=== PATIENT | female | born 1970 | race Caucasian/White ===

== ENCOUNTER 2020-03-22 12:52 | Emergency (ER) | payer MEDICAID ==
[~2020-03-22] VITALS: Ht 165.1 cm; Wt 70.5 kg
[~2020-03-22 12:52] MED LIST: CYCL-1 PO; HYDR-4383 PO; ONDA4TAB6 PO
[2020-03-22 13:50] VITALS: BP 121/75
[2020-03-22] MEDS ORDERED: LIDOcaine 5% patch TP STA (16:37)
[2020-03-22] MEDS ORDERED: ketorolac tromethamine 15mg/ml inj. IM ONE (16:40)
[2020-03-22] MEDS ORDERED: IBUP-1984 PO (17:04)
[2020-03-22] MEDS ORDERED: LIDO700A32 TOP (17:04)
== END 2020-03-22 17:14 | disposition home or self-care (01) ==
LOC: ER 12:53
DX: M75.41 Impingement syndrome of right shoulder (principal); J45.909 Unspecified asthma, uncomplicated; G89.29 Other chronic pain; Z88.1 Allergy status to other antibiotic agents; Z79.899 Other long term (current) drug therapy
CPT/HCPCS: 73030; 99283; J1885

== ENCOUNTER 2021-11-28 06:19 | Day surgery (SDC) | payer MEDICAID ==
[2021-11-21 14:56] LABS: BASOPHILS # (AUTO) 0.1 X10'3 (0-0.2); BASOPHILS % (AUTO) 0.9 % (0-1); EOSINOPHILS # (AUTO) 0.3 X10'3 (0-0.9); EOSINOPHILS % (AUTO) 2.4 % (0-6); LYMPHOCYTES # (AUTO) 4.1 X10'3 (1.1-4.8); LYMPHOCYTES % (AUTO) 32.5 % (21-51); MEAN CORPUSCULAR HEMOGLOBIN 28.7 PG (27.0-31.0); MEAN CORPUSCULAR HGB CONC 33.5 g/dL (33.0-36.5); MEAN CORPUSCULAR VOLUME 85.8 FL (78-98); MEAN PLATELET VOLUME 9.6 FL (7.4-10.4); MONOCYTES # (AUTO) 1.1 X10'3 (0-0.9); MONOCYTES % (AUTO) 8.6 % (2-12); NEUTROPHILS # (AUTO) 7.1 X10'3 (1.8-7.7); NEUTROPHILS % (AUTO) 55.6 % (42-75); PRE OP HEMOGLOBIN 12.4 g/dL (12.0-16.0); PRE OP PLATELET COUNT 273 X10'3 (140-440); RED BLOOD COUNT 4.32 X10'6 (4.20-5.60); RED CELL DISTRIBUTION WIDTH 15.7 % (11.5-14.5)
[2021-11-21 15:10] LABS: ALBUMIN 3.7 G/DL (3.4-5.0); ALBUMIN/GLOBULIN RATIO 1.1 (1.1-1.5); ALKALINE PHOSPHATASE 78 IU/L (46-116); BLOOD UREA NITROGEN 8 MG/DL (7-18); BUN/CREATININE RATIO 9.3 (6.6-38.0); CALCIUM 8.8 MG/DL (8.5-10.1); CHLORIDE 103 MMOL/L (99-107); CREATININE 0.86 MG/DL (0.40-0.90); PRE OP ALT 26 U/L (30-65); PRE OP ANION GAP 7 (8-16); PRE OP AST 20 U/L (10-37); PRE OP BILIRUB, TOTAL 0.2 MG/DL (0.0-1.0); PRE OP GLUCOSE 95 MG/DL (70-104); PRE OP POTASSIUM 4.2 MMOL/L (3.4-5.1); PRE OP SODIUM 138 MMOL/L (135-145); TOTAL CARBON DIOXIDE 27.8 MMOL/L (24-32); TOTAL PROTEIN 7.2 G/DL (6.4-8.2); eGFR 69 ML/MIN
[2021-11-28] VITALS (7 sets, daily range): BP systolic 102–125; BP diastolic 60–68
[~2021-11-28] VITALS: Ht 165.1 cm; Wt 64.6 kg
[~2021-11-28 06:19] MED LIST changes: +BACL20TA PO; +BECL10.62 INH; -CYCL-1 PO; +GABA-530 PO; -HYDR-4383 PO; +IBUP-1984 PO; +MONT-40 PO; -ONDA4TAB6 PO; +TRAZ-251 PO; +albuterol 2.5 MG/3 ML nebule NEB ONE; +ceFAZolin inj. 2,000 MG in dextrose 5%-water 100 ML IV ONE; +famotidine 20mg tablet PO ONE; +ringers solution, lacted 1,000 ML IV SCH
[2021-11-28] MEDS ORDERED: BUPIVAcaine/PF 2.5mg/ml (0.25%) 10ml vial ONE (06:51)
[2021-11-28] MEDS ORDERED: FLUO20CA39 PO (07:04)
[2021-11-28] MEDS ORDERED: hydrALAZINE 20mg/ml inj. IV PRN (09:15)
[2021-11-28] MEDS ORDERED: ringers solution, lacted 1,000 ML IV SCH (09:15)
[2021-11-28] MEDS ORDERED: morphine 4 MG/ML inj SYRINge IV PRN (09:15)
[2021-11-28] MEDS ORDERED: ondansetron/PF 4mg/2ml inj IV PRN (09:15)
[2021-11-28] MEDS ORDERED: morphine 2 MG/ML inj. syringe IV PRN (09:15)
[2021-11-28] MEDS ORDERED: fentaNYL/PF 50MCG/1 ML 2ML syringe IV PRN ×2 (09:15)
[2021-11-28] MEDS ORDERED: labetalol 20mg/4ml (5mg/ml) syringe IV PRN (09:15)
[2021-11-28] MEDS ORDERED: fentaNYL/PF 50MCG/1 ML 2ML syringe ONE (10:23)
[2021-11-28] MEDS ORDERED: midazolam 1 mg/ML 2ml injection ONE (10:24)
[2021-11-28] MEDS ORDERED: LIDOcaine 0.5% (5mg/ml) 50ml vial ONE (10:25)
--- NOTE | 2021-11-28 10:43 | NUR ---
Received from OR via [facility], accompanied by Anesthesiologist and report given by [facility]ME Anesthesiologist. PATIENT WAKING UP, NO S/S OF PAIN, V/S WNL, SCD ON, 20G TO LUE, RIGHT WRIST DRESSING CDI. ICE AND ELEVATED RUE. Addendum: 11/28/21 at 1123 by Jose Eduardo Lovett RN Amended: Links added.
--- NOTE | 2021-11-28 11:33 | NUR ---
PATIENT A&OX4, DENIES PAIN, V/S WNL, SCD OFF, 20G TO LUE D/C, RIGHT WRIST DRESSING CDI. ICE AND ELEVATED RUE. I HAVE REVIEWED D/C INSTRUCTIONS WITH PATIENT and they have verbalized understanding patient d/c home with all belongings and family gave transport home. Addendum: 11/28/21 at 1140 by Jose Eduardo Lovett RN Amended: Links added.
--- NOTE | 2021-11-28 14:59 | NUR ---
PATIENT'S DISCHARGE INSTRUCTIONS WERE FOUND ON THE ROOM FLOOR. RN LEFT VOICEMAIL TO PATIENT'S AND SPOUSE CELLPHONE IF THEY NEED TO HAVE FURTHER EXPLANATION ABOUT IT OR GET IT FROM THE UNIT.
== END 2021-11-28 11:33 | disposition home or self-care (01) ==
LOC: PAS 06:19
PROVIDERS: ATTEND Orthopaedic Surgery Hand Surgery
DX: G56.01 Carpal tunnel syndrome, right upper limb (principal); F17.210 Nicotine dependence, cigarettes, uncomplicated; G89.29 Other chronic pain; M19.90 Unspecified osteoarthritis, unspecified site; Z88.1 Allergy status to other antibiotic agents; Z79.899 Other long term (current) drug therapy; Z98.890 Other specified postprocedural states
CPT/HCPCS: 29848; 36415; 80053; 82948; 85025; 93005; J0690; J2250; J3010; J3490; J7030; J7060; J7120; Z7506; Z7512; A4215; A7000

== ENCOUNTER 2022-10-06 07:33 | Day surgery (SDC) | payer MEDICAID ==
[2022-09-29 11:26] LABS: BASOPHILS # (AUTO) 0.1 X10'3 (0-0.2); EOSINOPHILS # (AUTO) 0.2 X10'3 (0-0.9); EOSINOPHILS % (AUTO) 2.1 % (0-6); HEMATOCRIT 36.8 % (35.0-45.0); LYMPHOCYTES # (AUTO) 3.3 X10'3 (1.1-4.8); LYMPHOCYTES % (AUTO) 32.5 % (21-51); MEAN CORPUSCULAR HEMOGLOBIN 28.5 PG (27.0-31.0); MEAN CORPUSCULAR HGB CONC 32.6 g/dL (33.0-36.5); MEAN CORPUSCULAR VOLUME 87.5 FL (78-98); MEAN PLATELET VOLUME 9.4 FL (7.4-10.4); MONOCYTES # (AUTO) 1.3 X10'3 (0-0.9); MONOCYTES % (AUTO) 12.3 % (2-12); NEUTROPHILS # (AUTO) 5.3 X10'3 (1.8-7.7); NEUTROPHILS % (AUTO) 52.1 % (42-75); PLATELET COUNT 256 X10'3 (140-440); RED CELL DISTRIBUTION WIDTH 16.2 % (11.5-14.5); WHITE BLOOD COUNT 10.2 X10'3 (4.5-11.0)
[2022-09-29 11:42] LABS: ALANINE AMINOTRANSFERASE 22 U/L (12-78); ALBUMIN 3.4 G/DL (3.4-5.0); ALKALINE PHOSPHATASE 83 IU/L (46-116); ANION GAP 7 (8-16); ASPARTATE AMINO TRANSFERASE 23 U/L (10-37); BILIRUBIN,TOTAL 0.1 MG/DL (0.1-1.0); BLOOD UREA NITROGEN 8 MG/DL (7-18); BUN/CREATININE RATIO 9.9 (10.0-20.0); CALCIUM 8.6 MG/DL (8.5-10.1); CHLORIDE 105 MMOL/L (99-107); CREATININE 0.81 MG/DL (0.40-0.90); GLUCOSE 104 MG/DL (70-104); POTASSIUM 4.5 MMOL/L (3.5-5.1); SODIUM 138 MMOL/L (135-145); TOTAL CARBON DIOXIDE 25.6 MMOL/L (24-32); TOTAL PROTEIN 6.8 G/DL (6.4-8.2); eGFR 74 ML/MIN
[~2022-10-06] VITALS: Ht 165.1 cm; Wt 62.6 kg
[~2022-10-06 07:33] MED LIST changes: +BUPIVAcaine/PF 2.5 mg/ml (0.25%) 30ml vial ONE; +BUPR-72 PO; +FLUO20CA39 PO; -IBUP-1984 PO; -MONT-40 PO; -albuterol 2.5 MG/3 ML nebule NEB ONE; -ceFAZolin inj. 2,000 MG in dextrose 5%-water 100 ML IV ONE; +cefazolin 2gm/D5W 100mL 100 ML IV ONE; -famotidine 20mg tablet PO ONE; -ringers solution, lacted 1,000 ML IV SCH; +ringers solution, lacted 500 ML IV SCH
[2022-10-06] MEDS ORDERED: famotidine 20mg tablet PO ONE (10:14)
[2022-10-06] MEDS ORDERED: albuterol 2.5 MG/3 ML nebule NEB ONE (10:14)
[2022-10-06 10:30] VITALS: BP 127/70
[2022-10-06] MEDS ORDERED: LIDOcaine 0.5% (5mg/ml) 50ml vial ONE (12:20)
[2022-10-06] MEDS ORDERED: fentaNYL /PF 50mcg/ml 5ml ampule ONE (12:25)
[2022-10-06] MEDS ORDERED: midazolam 1 mg/ML 2ml injection ONE (12:25)
[2022-10-06] MEDS ORDERED: BUPIVAcaine 0.25% w/Epi /PF 30ml vial IJ ONE (12:43)
[2022-10-06 12:55] VITALS: BP 101/59
--- NOTE | 2022-10-06 12:55 | NUR ---
[facility] accompanied by Anesthesiologist HARRIS and report given by Anesthesiolgist. PT DROWSY, OXYGENATING WELL ON ROOM AIR, NO RESP DISTRESS NOTED. DENIES NAUSEA OR PAIN AT THIS TIME. BULKY DSG TO R THUMB/HAND CDI. R FINGERS PWD. VSS.
[2022-10-06] MEDS ORDERED: propofol inj 20 ML IV ONE (13:00)
[2022-10-06 13:05] VITALS: BP 112/69
[2022-10-06 13:15] VITALS: BP 110/70
[2022-10-06 13:25] VITALS: BP 109/68
--- NOTE | 2022-10-06 13:35 | NUR ---
VSS, DENIES PAIN. TOLERATING PO FLUIDS WELL. DC INSTRUCTIONS EXPLAINED TO PT, SHE VERBALIZED UNDERSTANDING. DCD IN STABLE CONDITION, TAKE TO CAR VIA WC.
== END 2022-10-06 13:35 | disposition home or self-care (01) ==
LOC: PAS 07:33
PROVIDERS: ATTEND Orthopaedic Surgery Hand Surgery
DX: M65.311 Trigger thumb, right thumb (principal); J45.909 Unspecified asthma, uncomplicated; G89.29 Other chronic pain; F17.290 Nicotine dependence, other tobacco product, uncomplicated; Z88.1 Allergy status to other antibiotic agents; Z79.899 Other long term (current) drug therapy; Z98.890 Other specified postprocedural states
CPT/HCPCS: 26055; 36415; 80053; 82948; 85025; A6222; J0690; J2250; J2704; J3010; J3490; J7030; J7120; S0020; Z7506; Z7512; A4215; A6449

== ENCOUNTER 2022-10-26 06:03 | Emergency (ER) | payer MEDICAID ==
[~2022-10-26] VITALS: Ht 165.1 cm; Wt 62.3 kg
[~2022-10-26 06:03] MED LIST changes: -BUPIVAcaine/PF 2.5 mg/ml (0.25%) 30ml vial ONE; -cefazolin 2gm/D5W 100mL 100 ML IV ONE; -ringers solution, lacted 500 ML IV SCH
[2022-10-26 06:06] VITALS: BP 111/66
[2022-10-26] MEDS ORDERED: cephalexin 250mg capsule PO ONE ×2 (06:50)
[2022-10-26] MEDS ORDERED: TETanus/Pertussis (Acell)/Diphther VAC/PF (Tdap-Adult) 0.5ml syringe IMVAC ONE (06:50)
[2022-10-26] MEDS ORDERED: CEPH250T PO (06:50)
== END 2022-10-26 07:02 | disposition home or self-care (01) ==
LOC: ER 06:04
DX: L03.011 Cellulitis of right finger (principal); J45.909 Unspecified asthma, uncomplicated; Z91.041 Radiographic dye allergy status
CPT/HCPCS: 90471; 90715; 99283

== ENCOUNTER 2022-10-28 15:28 | Emergency (ER) | payer MEDICAID ==
[~2022-10-28] VITALS: Ht 165.1 cm; Wt 68.5 kg
[~2022-10-28 15:28] MED LIST changes: +CEPH250T PO
[2022-10-28 15:41] VITALS: BP 112/75
--- NOTE | 2022-10-28 16:18 | NUR ---
PT PRESENTS TO THE ER WITH SWOLLEN AND REDDENED RIGHT PINKY FINGER. PT STATES THIS STARTED HAPPENING AFTER SCRATCHING IT A FEW DAYS AGO. PT STATES SHE IS 3 DAYS INTO HER PRESCRIPTION OF KEFLEX PRESCRIBED IN ER HERE.
[2022-10-28] MEDS ORDERED: LIDOcaine 1% W/epiNEPHrine 1:100,000 20ml vial IJ ONE (18:05)
[2022-10-28] MEDS ORDERED: ondansetron 4mg rapidly disintigrating tab PO ONE (18:35)
== END 2022-10-28 18:47 | disposition home or self-care (01) ==
LOC: ER 15:28
DX: L02.511 Cutaneous abscess of right hand (principal); J45.909 Unspecified asthma, uncomplicated; G89.29 Other chronic pain; Z88.8 Allergy status to other drugs, medicaments and biological substances; Z79.2 Long term (current) use of antibiotics; Z79.899 Other long term (current) drug therapy
CPT/HCPCS: 10060; 87070; 87077; 87186; 99283; A6449

== ENCOUNTER 2023-04-29 08:47 | Emergency (ER) | payer MEDICAID ==
[~2023-04-29] VITALS: Ht 165.1 cm; Wt 63.6 kg
[~2023-04-29 08:47] MED LIST changes: -CEPH250T PO
[2023-04-29 08:57] VITALS: BP 108/78; PULSE 80; RESP 18; TEMP 97.8; O2SAT 98
[2023-04-29] MEDS ORDERED: SULF1TAB49 PO (09:25)
[2023-04-29] MEDS ORDERED: CEPH-585 PO (09:25)
--- NOTE | 2023-04-29 13:41 | NUR ---
PATIENT DEPARTED FROM THE ER EARLIER TODAY, BUT PRIMARY NURSE IS UNSURE IF WRITTEN INSTRUCTIONS WERE GIVEN TO PATIENT WITH HER DEPARTURE. TC MADE TO PATIENT'S CONTACT PHONE NUMBER AND MESSAGE LEFT FOR PATIENT TO CALL BACK FOR QUESTIONS OR CLARIFICATION OF DC INSTRUCTIONS.
== END 2023-04-29 13:47 | disposition home or self-care (01) ==
LOC: ER 08:47
DX: L03.211 Cellulitis of face (principal); G89.29 Other chronic pain; M54.9 Dorsalgia, unspecified; J45.909 Unspecified asthma, uncomplicated; Z88.1 Allergy status to other antibiotic agents; Z79.899 Other long term (current) drug therapy
CPT/HCPCS: 99283

== ENCOUNTER 2023-07-09 05:49 | Day surgery (SDC) | payer MEDICAID ==
[2023-07-02 09:57] LABS: BASOPHILS # (AUTO) 0.1 X10'3 (0-0.2); EOSINOPHILS # (AUTO) 0.1 X10'3 (0-0.9); LYMPHOCYTES # (AUTO) 3.2 X10'3 (1.1-4.8); RED BLOOD COUNT 4.53 X10'6 (4.20-5.60); RED CELL DISTRIBUTION WIDTH 15.3 % (11.5-14.5)
[2023-07-02 09:58] LABS: BASOPHILS % (AUTO) 1.3 % (0-1); EOSINOPHILS % (AUTO) 1.2 % (0-6); HEMATOCRIT 39.7 % (35.0-45.0); HEMOGLOBIN 12.9 g/dl (12.0-16.0); LYMPHOCYTES % (AUTO) 30.1 % (21-51); MEAN CORPUSCULAR HEMOGLOBIN 28.5 PG (27.0-31.0); MEAN CORPUSCULAR HGB CONC 32.6 g/dL (33.0-36.5); MEAN CORPUSCULAR VOLUME 87.5 FL (78-98); MEAN PLATELET VOLUME 10.4 FL (7.4-10.4); MONOCYTES % (AUTO) 9.4 % (2-12); NEUTROPHILS # (AUTO) 6.1 X10'3 (1.8-7.7); PLATELET COUNT 293 X10'3 (140-440); WHITE BLOOD COUNT 10.5 X10'3 (4.5-11.0)
[2023-07-02 10:11] LABS: ALANINE AMINOTRANSFERASE 26 U/L (12-78); ALBUMIN 3.8 G/DL (3.4-5.0); ALKALINE PHOSPHATASE 91 IU/L (46-116); ANION GAP 9 (8-16); ASPARTATE AMINO TRANSFERASE 18 U/L (10-37); BILIRUBIN,TOTAL 0.3 MG/DL (0.1-1.0); BLOOD UREA NITROGEN 6 MG/DL (7-18); BUN/CREATININE RATIO 7.1 (10.0-20.0); CALCIUM 8.8 MG/DL (8.5-10.1); CHLORIDE 101 MMOL/L (99-107); CREATININE 0.85 MG/DL (0.40-0.90); GLUCOSE 147 MG/DL (70-104); POTASSIUM 3.8 MMOL/L (3.5-5.1); SODIUM 137 MMOL/L (135-145); TOTAL CARBON DIOXIDE 26.8 MMOL/L (24-32); TOTAL PROTEIN 7.6 G/DL (6.4-8.2); eGFR 70 ML/MIN
[2023-07-02 10:17] LABS: LARGE PLATELETS FEW; PLATELET ESTIMATE NORMAL
[2023-07-02 10:24] LABS: ANISOCYTOSIS 1+
[~2023-07-09] VITALS: Ht 165.1 cm; Wt 66.4 kg
[~2023-07-09 05:49] MED LIST changes: -BUPR-72 PO; -FLUO20CA39 PO; +MONT-48 PO; +albuterol 2.5 MG/3 ML nebule NEB PRN
[2023-07-09 06:00] VITALS: BP 125/79; PULSE 79; RESP 16; TEMP 98.4; O2SAT 97
[2023-07-09] MEDS: famotidine 20mg tablet PO ONE (06:25)
[2023-07-09] MEDS: cefazolin 2gm/D5W 100mL 100 ML IV ONE (06:26)
[2023-07-09] MEDS: ringers solution, lacted 1,000 ML IV SCH (06:26)
[2023-07-09] MEDS ORDERED: FLUO20CA39 PO (06:34)
[2023-07-09] MEDS ORDERED: BUPIVAcaine/PF 2.5mg/ml (0.25%) 10ml vial ONE (07:07)
[2023-07-09] MEDS ORDERED: LIDOcaine 1% (10mg/ml)w/preservative inj. 20ml MDV ONE (08:19)
[2023-07-09] MEDS ORDERED: midazolam 1 mg/ML 2ml injection ONE (08:47)
[2023-07-09] MEDS ORDERED: fentaNYL/PF 50MCG/1 ML 2ML syringe ONE (08:47)
[2023-07-09] MEDS ORDERED: propofol inj 20 ML IV ONE (08:54)
[2023-07-09] MEDS ORDERED: LIDOcaine 2% (20mg/ml) 5ml vial ONE (08:54)
[2023-07-09] MEDS: BUPIVAcaine/PF 2.5mg/ml (0.25%) 10ml vial IJ ONE (09:06)
[2023-07-09] MEDS: LIDOCAINE 1% w/preservative (10 MG/ML) inj. 10mL VIAL IJ ONE (09:07)
[2023-07-09 09:20] VITALS: BP 102/64; PULSE 68; RESP 16; O2SAT 98
[2023-07-09 09:30] VITALS: BP 98/68; PULSE 72; RESP 15; O2SAT 98
[2023-07-09 09:40] VITALS: BP 107/69; PULSE 68; RESP 15; O2SAT 98
[2023-07-09 09:50] VITALS: BP 105/66; PULSE 67; RESP 14; O2SAT 98
== END 2023-07-09 09:50 | disposition home or self-care (01) ==
LOC: PAS 05:49
PROVIDERS: ATTEND Orthopaedic Surgery Hand Surgery
DX: M65.312 Trigger thumb, left thumb (principal); J45.909 Unspecified asthma, uncomplicated; G89.29 Other chronic pain; F12.90 Cannabis use, unspecified, uncomplicated; Z88.1 Allergy status to other antibiotic agents; Z79.899 Other long term (current) drug therapy; Z98.890 Other specified postprocedural states; F17.210 Nicotine dependence, cigarettes, uncomplicated; Z82.5 Family history of asthma and other chronic lower respiratory diseases
CPT/HCPCS: 26055; 36415; 80053; 82948; 85025; 93005; J0690; J2250; J2704; J3010; J3490; J7030; J7120; Z7506; Z7512; 85008; A4215; A6449

== ENCOUNTER 2023-12-18 01:58 | Emergency (ER) | payer MEDICAID ==
[~2023-12-18] VITALS: Ht 165.1 cm; Wt 66.4 kg
[~2023-12-18 01:58] MED LIST changes: +FLUO20CA39 PO; -albuterol 2.5 MG/3 ML nebule NEB PRN
[2023-12-18] MEDS: predniSONE 20 mg tablet PO ONE (02:33)
[2023-12-18] MEDS: ipratropium/albuterol 3ml nebule NEB PRN (02:58)
[2023-12-18 02:59] VITALS: PULSE 89; RESP 20; O2SAT 97
[2023-12-18 03:09] VITALS: PULSE 94; RESP 18
[2023-12-18 03:22] VITALS: BP 134/81; PULSE 93; RESP 20; O2SAT 97
[2023-12-18] MEDS ORDERED: PRED10TA23 PO (03:31)
[2023-12-18] MEDS ORDERED: ALBU18HF2 INH (03:31)
[2023-12-18 03:47] VITALS: TEMP 98.5
== END 2023-12-18 03:50 | disposition home or self-care (01) ==
LOC: ER 01:59
DX: J44.1 Chronic obstructive pulmonary disease with (acute) exacerbation (principal); J45.909 Unspecified asthma, uncomplicated; G89.29 Other chronic pain; M54.9 Dorsalgia, unspecified; Z91.048 Other nonmedicinal substance allergy status; Z79.899 Other long term (current) drug therapy
CPT/HCPCS: 71045; 94640; 99283; J7512; 94760

== ENCOUNTER 2024-05-12 16:08 | Emergency (ER) | payer MEDICAID ==
[~2024-05-12] VITALS: Ht 165.1 cm; Wt 73.8 kg
[~2024-05-12 16:08] MED LIST changes: +ALBU18HF2 INH
[2024-05-12 16:18] VITALS: BP 147/76
[2024-05-12] MEDS ORDERED: ALBU18HF2 INH (17:20)
[2024-05-12] MEDS ORDERED: PRED20TA PO (17:20)
[2024-05-12] MEDS ORDERED: AMOX-580 PO (17:20)
[2024-05-12] MEDS: albuterol 2.5 MG/3 ML nebule NEB ONE (17:34)
[2024-05-12 17:36] VITALS: PULSE 80; RESP 20; O2SAT 98
[2024-05-12] MEDS: predniSONE 20 mg tablet PO ONE (17:40)
[2024-05-12] MEDS: amox tr/potassium clavulanate 875/125mg TAB PO ONE (17:40)
[2024-05-12 17:43] VITALS: PULSE 85; RESP 20; O2SAT 98
[2024-05-12 18:22] VITALS: TEMP 98
== END 2024-05-12 18:26 | disposition home or self-care (01) ==
LOC: ER 16:09
DX: J18.9 Pneumonia, unspecified organism (principal); J45.909 Unspecified asthma, uncomplicated; G89.29 Other chronic pain; Z88.1 Allergy status to other antibiotic agents; Z88.8 Allergy status to other drugs, medicaments and biological substances; Z88.0 Allergy status to penicillin
CPT/HCPCS: 71045; 94640; 99283; J7512; 94760

== ENCOUNTER 2024-09-22 01:34 | Emergency (ER) | payer MEDICAID ==
[~2024-09-22] VITALS: Ht 165.1 cm; Wt 69.3 kg
[2024-09-22] MEDS: normal saline 1000ML IV soln IVB ONE (03:09)
[2024-09-22] MEDS: diphenhydrAMINE 50 mg/ml inj IV ONE (03:09)
[2024-09-22] MEDS: proCHLORperazine 10 MG/2 ml inj IV ONE (03:09)
[2024-09-22] MEDS: morphine 2 MG/ML inj. syringe IV PRN (04:02)
[2024-09-22] MEDS: ketorolac trometh 15mg/ml vial 15 MG/ML ML IV ONE (04:31)
[2024-09-22 05:03] VITALS: BP 143/79; PULSE 67; RESP 14; TEMP 98.2; O2SAT 100
== END 2024-09-22 05:13 | disposition home or self-care (01) ==
LOC: ER 01:35
DX: R11.10 Vomiting, unspecified (principal); R51.9 Headache, unspecified; G89.29 Other chronic pain; M54.9 Dorsalgia, unspecified; F41.9 Anxiety disorder, unspecified; F17.200 Nicotine dependence, unspecified, uncomplicated; F12.90 Cannabis use, unspecified, uncomplicated; J45.909 Unspecified asthma, uncomplicated; Z88.1 Allergy status to other antibiotic agents; Z79.899 Other long term (current) drug therapy
CPT/HCPCS: 70450; 96361; 96374; 96375; 99285; J0780; J1200; J2270; J7030

== ENCOUNTER 2024-12-09 10:55 | Outpatient (CLI) | payer MEDICAID ==
--- NOTE | 2024-12-09 12:46 | RADIOLOGY REPORT ---
Exam: US US SOFT TISSUE MASS Date: 12/09/2024 11:12 AM Clinical History: SOFT TISSUE DISORDER Comparison: None Technique: Targeted sonographic evaluation of the soft tissues of the bilateral back was obtained utilizing howe scale and color Doppler imaging. Findings/Impression: Normal appearing muscle in region of reported palpable abnormalities.
== END 2024-12-09 23:59 | disposition home or self-care (01) ==
LOC: RAD 10:55
PROVIDERS: ATTEND Physician Assistant
DX: M79.9 Soft tissue disorder, unspecified (principal)
CPT/HCPCS: 76882

== ENCOUNTER 2025-05-09 23:07 | Emergency (ER) | payer MEDICAID ==
[~2025-05-09] VITALS: Ht 157.5 cm; Wt 69.5 kg
[~2025-05-09 23:07] MED LIST changes: -FLUO20CA39 PO; +FLUO20CA41 PO
[2025-05-10 03:32] LABS: INFLUENZA TYPE A ANTIGEN RAPID NEGATIVE (Negative); INFLUENZA TYPE B ANTIGEN RAPID NEGATIVE (Negative)
[2025-05-10 03:35] LABS: CREATININE 1.18 MG/DL (0.40-0.90); PRO BRAIN NATRIURETIC PEPTIDE 837 PG/ML (0-125); TOTAL CARBON DIOXIDE 26.2 MMOL/L (24-32); eCRCL 43 ML/MIN; eGFR 48 ML/MIN
[2025-05-10 03:40] LABS: MEAN PLATELET VOLUME 10.3 FL (7.4-10.4); RED CELL DISTRIBUTION WIDTH 15.2 % (11.5-14.5)
[2025-05-10 04:06] VITALS: BP 116/69; PULSE 89; RESP 22; TEMP 98.5; O2SAT 95
[2025-05-10] MEDS: LIDOcaine 2% Viscous 15ml cup MM ONE (04:19)
[2025-05-10] MEDS: magnesium hydroxide 30ml (MOM) UD suspension PO ONE (04:19)
--- NOTE | 2025-05-10 11:10 | ELECTROCARDIOGRAPH REPORT ---
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 PALAK Boone Measurements Intervals [place] Rate: 110 P: 0 VT: 138 QRS: 33 QRSD: 78 T: 57 QT: 320 QTc: 433 Interpretive Statements Sinus tachycardia Probable left atrial enlargement RSR' in V1 or V2, right VCD or RVH Electronically Signed On 05-11-2025 9:36:[address] PALAK Boone Please click the below link to view image of tracing.
--- NOTE | 2025-05-10 11:45 | RADIOLOGY REPORT ---
CLINICAL INFORMATION: Chest pain. TECHNIQUE: Single AP portable chest radiograph was obtained. COMPARISON: DI CHEST,SINGLE VIEW on DOS: 05/12/24, DI CHEST,SINGLE VIEW on DOS: 12/18/23 FINDINGS: Lungs: Atelectasis in the lung bases. No focal consolidation. No pneumothorax or pleural effusion. Cardiac: Heart size is within normal limits. Pulmonary vasculature: Unremarkable. Mediastinum/asael: Unremarkable. Bones: No acute osseous abnormality identified. Other: No other significant findings. IMPRESSION: Bibasilar atelectasis with no focal consolidation or other acute radiographic abnormality identified in the chest.
--- NOTE | 2025-05-11 08:45 | RADIOLOGY REPORT ---
PROCEDURE: CTA Chest Date: 05/10/2025 12:51 AM HISTORY: CHEST PAIN IV Contrast: Omnipaque 350, 100 cc MIP reconstruction images are provided COMPARISON: None RADIATION DOSE INFORMATION: Automated exposure control dose reduction techniques were used. FINDINGS: Pulmonary vasculature: No filling defects are seen within the pulmonary vasculature to suggest the presence of pulmonary embolus. Aorta and IVC: The aorta and IVC are patent and are normal in size. No evidence of a aortic dissection or aneurysm is seen. Lungs: Interseptal lobular thickening is seen suggesting some degree of fluid overload. No consolidation is seen. No masses are seen. Minor underlying chronic lung changes are suspected. Mediastinum: Multiple prominent lymph nodes are noted particularly in the subcarinal and periaortic regions. Prominent nodes are also seen in the left hilum. These might be reactive. Follow-up is needed. Liver: The liver is normal in size. There is no focal liver lesion. Biliary ducts: There is no evidence of intrahepatic or extrahepatic biliary ductal dilatation. Gallbladder: No abnormality is seen of the gallbladder. Spleen: The spleen is normal in size without focal lesion. Stomach: The stomach appears unremarkable. Pancreas: The pancreas is unremarkable. Adrenal glands: The adrenal glands are unremarkable. Kidneys: The kidneys are normal in size and are symmetric. There is no evidence of hydronephrosis. No focal renal lesion is noted. Mesenteric vessels: Major mesenteric vessels appear to be intact. Bowel: The visualized portions of the small and large bowel are normal in caliber. Appendix: The appendix is unremarkable. Pelvis:Pelvic structures appear unremarkable. Lymph nodes: There is no evidence of lymphadenopathy. Osseous structures: The osseous structures are intact. No lytic or blastic osseous lesion is noted. Free fluid/free air: None IMPRESSION: 1. No evidence of pulmonary embolism. 2. Interseptal lobular thickening is seen suggesting some degree of fluid overload. 3. Multiple prominent lymph nodes are noted particularly in the subcarinal and periaortic regions. Prominent nodes are also seen in the left hilum. These might be reactive. Follow-up is needed.
== END 2025-05-10 04:21 | disposition home or self-care (01) ==
LOC: ER 23:07
DX: R07.9 Chest pain, unspecified (principal); R06.02 Shortness of breath; Z53.21 Procedure and treatment not carried out due to patient leaving prior to being seen by health care provider; Z88.1 Allergy status to other antibiotic agents; Z20.822 Contact with and (suspected) exposure to COVID-19
CPT/HCPCS: 36415; 71045; 71275; 80053; 83880; 84484; 85025; 87804; 87811; 93005; 99282; Q9967; 99285